=== PATIENT | male | born 1930 | race Caucasian/White ===

== ENCOUNTER → 2016-10-30 | Outpatient (CLI) | payer OTHER ==
[2016-10-30 16:26] LABS: BASOPHILS # (AUTO) 0.05 10*3/UL; HEMATOCRIT 41.3 % (42.0-52.0); HEMOGLOBIN 13.8 g/dL (14.0-18.0); IMM GRAN % (AUTO) 0.2 % (0-5); IMM GRAN# (AUTO) 0.01 10*3/UL; LYMPHOCYTES # (AUTO) 1.55 10*3/uL; LYMPHOCYTES % (AUTO) 31.3 % (10-50); MEAN CORPUSCULAR HEMOGLOBIN 30.1 PG (27-31); MEAN CORPUSCULAR HGB CONC 33.4 g/dL (33-37); MEAN PLATELET VOLUME 9.2 FL (7.4-12.2); MONOCYTES # (AUTO) 0.53 10*3/UL (0.3-0.8); MONOCYTES % (AUTO) 10.7 % (5-15); NEUTROPHILS # (AUTO) 2.66 10*3/UL; NEUTROPHILS % (AUTO) 53.8 % (50-80); RED BLOOD COUNT 4.59 10^6/uL (4.70-6.10); WHITE BLOOD COUNT 4.95 10^3/uL (4.8-10.8)
[2016-10-30 16:32] LABS: PLATELET MORPHOLOGY COMMENT NORMAL MORPHOLOGY (NORM)
[2016-10-30 16:49] LABS: BILIRUBIN,TOTAL 0.5 mg/dL (0.3-1.2); BUN/CREATININE RATIO 16.25 (6-20); CALCIUM 9.1 mg/dL (8.7-10.7); CREATININE 0.8 mg/dL (0.70-1.50); POTASSIUM 4.4 meq/L (3.8-5.2); TOTAL PROTEIN 6.3 g/dL (6.1-8.0)
[2016-10-30 16:51] LABS: BILIRUBIN,URINE NEGATIVE (NEG); CLARITY,URINE CLEAR (CLEAR); GLUCOSE, URINE (UA) NEGATIVE (NEG); LEUKOCYTE ESTERASE ,URINE NEGATIVE (NEG); NITRATE,URINE NEGATIVE (NEG); OCCULT BLOOD,URINE NEGATIVE (NEG); PROTEIN,URINE 30 mg/dl (NEG); URINE SAMPLE TYPE CLEAN CATCH URINE; UROBILINOGEN,URINE 0.2 mg/dL (0.2)
== END ==
LOC: MOB LAB 15:22
DX: E55.9 Vitamin D deficiency, unspecified (principal); G47.30 Sleep apnea, unspecified; E78.5 Hyperlipidemia, unspecified; K51.90 Ulcerative colitis, unspecified, without complications; R97.20 Elevated prostate specific antigen [PSA]; Z12.5 Encounter for screening for malignant neoplasm of prostate
CPT/HCPCS: 36415; 80053; 81001; 82306; 84443; 85025; G0103

== ENCOUNTER 2016-11-18 02:35 | Inpatient (IN) | payer OTHER ==
[2016-11-18] MEDS ORDERED: Sodium Chloride 0.9% 1,000 ML PRIMARY IV ONE (02:52)
[2016-11-18] MEDS ORDERED: NORMAL SALINE 10 ML SYRINGE FLUSH IVP PRN ×2 (02:52→06:25)
[2016-11-18] MEDS ORDERED: LORazepam 2 MG/1 ML VIAL IVP ONE (02:55)
--- NOTE | 2016-11-18 02:57 | EKG ---
[address] [address] Measurements Intervals [place] Rate: 82 P: 71 NM: 175 QRS: -28 QRSD: 90 T: -37 QT: 397 QTc: 436 Interpretive Statements SINUS RHYTHM WITH OCCASIONAL VENTRICULAR PREMATURE COMPLEXES BORDERLINE LEFT AXIS DEVIATION [QRS AXIS < -20] NONSPECIFIC ST & T-WAVE ABNORMALITY No previous ECG available for comparison Electronically Signed On 11-18-16 12:34:07 MDT by Melvin Bowen [email or web address]
[2016-11-18 03:20] LABS: VENOUS PCO2 38.6 mmHg (45-55); VENOUS PH 7.34 (7.32-7.42)
[2016-11-18 03:31] LABS: BASOPHILS # (AUTO) 0.04 10*3/UL; BASOPHILS % (AUTO) 0.8 % (0-1); EOSINOPHILS # (AUTO) 0.24 10*3/UL; EOSINOPHILS % (AUTO) 4.5 % (0-8); HEMATOCRIT 40.6 % (42.0-52.0); HEMOGLOBIN 13.7 g/dL (14.0-18.0); LYMPHOCYTES # (AUTO) 1.99 10*3/uL; MEAN CORPUSCULAR HEMOGLOBIN 30.6 PG (27-31); MEAN CORPUSCULAR HGB CONC 33.7 g/dL (33-37); MEAN CORPUSCULAR VOLUME 90.6 FL (80-90); MEAN PLATELET VOLUME 9.4 FL (7.4-12.2); MONOCYTES # (AUTO) 0.51 10*3/UL (0.3-0.8); MONOCYTES % (AUTO) 9.6 % (5-15); NEUTROPHILS # (AUTO) 2.53 10*3/UL; NEUTROPHILS % (AUTO) 47.6 % (50-80); PLATELET MORPHOLOGY COMMENT NORMAL MORPHOLOGY (NORM); RBC MORPHOLOGY COMMENT NORMAL MORPHOLOGY (NORM); RED BLOOD COUNT 4.48 10^6/uL (4.70-6.10); WBC MORPHOLOGY COMMENT NORMAL MORPHOLOGY (NORM)
[2016-11-18 03:32] LABS: AMMONIA < 9 UMOL/L (9.0-33.0); BLOOD UREA NITROGEN 15 mg/dL (7-22); BUN/CREATININE RATIO 16.66 (6-20); CALCIUM 8.5 mg/dL (8.7-10.7); MAGNESIUM 1.9 mg/dL (1.6-2.4); SERUM ALBUMIN 3.8 g/dL (3.5-4.8)
--- NOTE | 2016-11-18 03:34 | DI ---
HISTORY: Hypoxia. COMPARISON: None available. TECHNIQUE: Single portable view of the chest. FINDINGS: No lobar infiltrate, large pleural effusion or pneumothorax. Moderate enlargement of the cardiac silhouette. No acute osseous abnormality. Chronic, full thickness rotator cuff tears. Decr eased osseous mineralization, evaluation of the spine limited. Suggested hiatal hernia. IMPRESSION: 1. No lobar consolidation or large effusion. 2. Moderate cardiomegaly.
[2016-11-18 03:35] LABS: C-REACTIVE PROTEIN < 0.5 mg/dL (0.0-0.9); SALICYLATE < 1.0 mg/dl (0-20)
--- NOTE | 2016-11-18 03:59 | DI ---
HISTORY: Confusion. COMPARISON: None available. TECHNIQUE: Non-contrast CT brain. Overall image quality is satisfactory, noting limitation of the p erioral soft tissues secondary to dental hardware. FINDINGS: EXTRACRANIAL SOFT TISSUES- No significant soft tissue injury identified. BONE - Calvarium: No depressed skull fracture. Temporal mastoids: No mastoid effusion. No discrete mastoid fracture noted. Included paranasal sinuses: Well aerated, noting maxillary sinus mucosal thickening. Orbits: No acute abnormality. CSF SPACES - Ventricles: Prominent. Subarachnoid spaces: Prominent. BRAIN - Periventricular and subcortical variable white matter changes. No acute intracranial bleed, large vessel territory infarct or midline shift. Atherosclerotic vascular calcifications in the distal internal carotid and cerebral arteries. IMPRESSION: 1. No acute intracranial hemorrhage or midline shift. 2. Variable white matter changes which are age indeterminate, likely on the basis of chronic small ve ssel ischemic change.
--- NOTE | 2016-11-18 04:49 | PDOC ---
General Adult HPI - General Chief Complaint: Neurological Complaints Stated Complaint: MENTAL STATUS CHANGE Date Seen by Provider: 11/18/16 Time Seen by Provider: 02:35 Source: POSITIVE: Patient, Spouse, EMS Exam Limitations: POSITIVE: Clinical condition Nurse's Notes Reviewed & Considered: Yes EMS Report Reviewed & Considered: Verbal - History of Present Illness Initial Comment: The patient is an 86-year-old male who is brought to the emergency department by ambulance with altered mental status. His reports that he seemed to be doing fine earlier today and they had actually traveled to [place] to watch a rodeo. They had gone to sleep at approximately 11 PM. She woke up at approximately 2 AM and noticed that he seemed to be breathing differently. She tried to wake him up and he was unresponsive. She subsequently called 911. When EMS first arrived the patient was unresponsive. His oxygen saturations were low in the 80s. His blood sugar was normal at 122 and his 12-lead EKG did not show any acute changes. An IV was established and in route the patient seemed to be doing better. He was moving all extremities and would follow commands however his speech was still somewhat difficult to understand. EMS did report that he was incontinent of urine at his home. He does not have any known history of seizures or stroke. His reports that he has primary sclerosing cholangitis for which he has been under treatment with the GI doctors in [place] for some time and has been stable. He was recently started on medication for his blood pressure and underwent a stress test the food demonstrator last week in [place]. They were told that the stress test was normal for the most part and he was supposed to follow up with Dr. calderon at the cardiology clinic later this week here and [place]. He did recently get started on a blood pressure medicine about a week ago. In addition his reports that he does have a history of sleep apnea. He normally wears oxygen at night at 2 L. His reports however that he does occasionally "forget to breathe" when he is sleeping. She states that he tried a CPAP machine previously and was unable to tolerate it. He is otherwise generally fairly healthy and active. Have you received a tetanus shot in the past 10 years?: Unknown - Patient Home Medications Home Medications: Home Medications Azathioprine 1.5 tab PO QD #45 tab 01/17/11 Omeprazole 20 mg ORAL QD capsule 01/17/11 Sulfasalazine 2 - 4 tab PO QD #120 01/17/11 Ursodiol 1 - 3 cap PO QD #90 01/17/11 Folic Acid 1 mg ORAL QD tab 10/15/12 Saw [place] Xtr/Zinc Picolin [Saw [place] Capsule] 1 each PO DAILY 10/15/12 Cholecalciferol (Vitamin D3) [Vitamin D3] 1 cap PO QD #30 cap 11/09/15 Vitamin E Mixed [Vitamin E] 1 cap PO QD #30 cap 11/09/15 - Patient Allergies Allergies/Adverse Reactions: Allergies Allergy/AdvReac Type Severity Reaction Status Date / Time No Known Allergies Allergy Verified 11/18/16 03:03 Past Medical History - heen HEENT History: Denies History Cardiovascular History: Hyperlipidemia Respiratory History: Sleep Apnea Gastrointestinal History: GERD Genitourinary History: Denies History Endocrine History: Denies History Musculoskeletal History: Other (please comment) Additional Musculoskeletal History: RECENT CARPAL TUNNEL Neurological History: Denies History Blood Disorders: Denies History Psychiatric History: Denies History History of Sexually Transmitted Diseases: No Male Reproductive History: Denies History Cancer History: Denies History In Past Year Been Physically Harmed or Verbally Threatened: No History of MDRO: No History of Other Communicable Diseases: No Tobacco Use: Former Smoker Alcohol Use: None Substance Use Type: None Previous Surgical History: Yes Type / Date of Surgery: CARPAL TUNNEL (SATURDAY), APPY, LAP IRON Significant Family History: No pertinent family hx Past Medical History Reviewed: Reviewed - No Changes ROS - Limitations ROS Limitations: Clinical Condition, Other (please comment) (On arrival the patient was awake however he was confused and somewhat agitated) Constitution: DENIES: Chills, Fever Cardiovascular: DENIES: Chest Pain Respiratory: REPORTS: Other (He was breathing fast initially on seen however this seems to have settled down by the time he arrived here). DENIES: Cough Non Productive, Cough Productive Neurological: REPORTS: Other (He does have a tremor) Gastrointestinal: DENIES: Abdominal Pain, Nausea, Vomitting, Diarrhea Musculoskeletal: REPORTS: Other (He denies any pain and has not had any swelling ) Genitourinary: REPORTS: Denies Symptoms Eyes: REPORTS: Denies Symptoms ENT: REPORTS: Denies Symptoms Skin: DENIES: Rash General Adult Exam - General Appearance General Appearance: POSITIVE: Other (On arrival the patient is awake and he does follow commands however he does appear confused and somewhat agitated, he thought that Pres. Boo was in office) - HEENT HEENT: POSITIVE: Head Inspection Nml, Eyes Inspection Nml, Ears Inspection Nml, Nose Inspection Nml, Pharynx Inspect. Nml, PERRL, EOMI - Neck Neck: POSITIVE: Normal Inspection. NEGATIVE: Lymphadenopathy - Respiratory Respiratory: POSITIVE: No Respiratory Distress, Breath Sounds Normal - Cardiovascular Cardiovascular: POSITIVE: Regular Rate & Rhythm, No Murmur Peripheral Pulses: Dorsalis-pedis (R): 2+, Dorsalis-pedis (L): 2+ - Abdomen Abdomen: Soft: (All Quadrants), Denies Tenderness: (All Quadrants), No Distention: (All Quadrants) - Skin Skin: POSITIVE: Normal Color, No Rash - Extremities Extremity: Normal ROM: (All Extremities), Normal Inspection: (All Extremities) - Neurological / Psychological Neurological: POSITIVE: transmitter tester Normal As Tested, Motor Normal, Sensation Normal, Other (No focal motor deficits) General Adult Progress - Results Reviewed by me Xrays/CTs/US Reviewed by me: Yes Discussed with Radiologist: Yes Radiology Findings: Chest x-ray shows borderline cardiomegaly with no acute infiltrate or effusion per radiologist. CT scan of his head reveals no acute intracranial findings per radiologist. Lab Results Reviewed: Yes Lab Results:: Laboratory Results 11/18/16 11/18/16 Range/Units 02:52 03:17 WBC 5.31 (4.8-10.8) 10^3/uL RBC 4.48 L (4.70-6.10) 10^6/uL Hgb 13.7 L (14.0-18.0) g/dL Hct 40.6 L (42.0-52.0) % MCV 90.6 H (80-90) FL MCH 30.6 (27-31) PG MCHC 33.7 (33-37) g/dL RDW Std Deviation 47.0 (39-50) fL RDW Coeff of Niurka 14.4 (11.5-14.5) % Plt Count 276 (140-350) 10*3/uL MPV 9.4 (7.4-12.2) FL Immature Gran % (Auto) 0 (0-5) % Neut % (Auto) 47.6 L (50-80) % Lymph % (Auto) 37.5 (10-50) % [place] % (Auto) 9.6 (5-15) % Eos % (Auto) 4.5 (0-8) % Baso % (Auto) 0.8 (0-1) % Immature Gran # (Auto) 0 10*3/UL Neut # (Auto) 2.53 10*3/UL Lymph # (Auto) 1.99 10*3/uL [place] # (Auto) 0.51 (0.3-0.8) 10*3/UL Eos # (Auto) 0.24 10*3/UL Baso # (Auto) 0.04 10*3/UL WBC Morphology Comment Normal morphology (NORM) Plt Morphology Comment Normal morphology (NORM) RBC Morph Comment Normal morphology (NORM) VBG pH 7.34 (7.32-7.42) VBG pCO2 38.6 L (45-55) mmHg VBG HCO3 20.8 L (22-26) mmol/L VBG Base Excess -5 L (-2-2) MMOL/L Sodium 132 L (135-145) meq/L Potassium 3.9 (3.8-5.2) meq/L Chloride 98 (98-112) meq/L Carbon Dioxide 23 (23-33) meq/L Anion Gap 11 (5-20) BUN 15 (7-22) mg/dL Creatinine 0.9 (0.70-1.50) mg/dL Estimated GFR Internet Sales Manager BUN/Creatinine Ratio 16.66 (6-20) Glucose 99 (78-110) mg/dL Calculated Osmolality 274.0 (267-292) mOsm/kg Lactic Acid 5.0 H (0.70-2.10) MMOL/L Calcium 8.5 L (8.7-10.7) mg/dL Magnesium 1.9 (1.6-2.4) mg/dL Total Bilirubin 0.5 (0.3-1.2) mg/dL AST 28 (21-57) IU/L ALT 19 L (21-72) IU/L Alkaline Phosphatase 50 (38-126) IU/L Ammonia < 9 L (9.0-33.0) UMOL/L Total Creatine Kinase 256 H (55-170) IU/L Troponin I < 0.012 (< 0.040) ng/mL C-Reactive Protein < 0.5 (0.0-0.9) mg/dL Total Protein 6.1 (6.1-8.0) g/dL Albumin 3.8 (3.5-4.8) g/dL Globulin 2.3 L (2.50-4.10) g/dL Albumin/Globulin Ratio 1.60 (1.3-2.0) mg/g TSH 4.22 H (0.2700-4.2000) uIU/mL Free T4 Pending Salicylates < 1.0 (0-20) mg/dl Acetaminophen < 10.0 (0-30) ug/mL Serum Alcohol < 10 (0-10) mg/dL EKG Interpreted/Reviewed By Me:: Yes EKG Interpretation:: POSITIVE: Normal Sinus Rhythm, Normal Rate, Normal Intervals, Normal [place], Normal QRS, Normal ST/T - Patient's Progress MDM / ED Course: On arrival the patient was somewhat confused and agitated however did not appear to have any focal neurologic deficits. This confusion and agitation gradually resolved over approximately 30-60 minutes. At that time the patient was answering questions appropriately and joking, he was able to get up and walk to the bathroom on his own. His workup here is essentially unremarkable, his EKG shows normal sinus rhythm with no acute changes, his blood work reveals a slightly elevated lactate as well as a mildly elevated CPK however everything else is fairly unremarkable. He has a mildly low hemoglobin and mildly low sodium which is not new. At this point it is unclear exactly what the etiology of this episode this evening was. It is possible this could be some form of TIA or some type of hypoxic event related to sleep apnea. Decision was made to admit the patient for further monitoring and evaluation. After [facility] has agreed to admit the patient. These findings and recommendations were discussed with the patient and family and they're in agreement with this plan. - Consult Counseled: POSITIVE: Patient, Family, RE: Lab Results, RE: Radiology Results, RE : DX, RE: Need for F/U Patient Care Time - Estimated PCT Patient Care Time (In Minutes): 40 Vital Signs - Recent Vital Signs Vital Signs: Vital Signs (Last 8 hours) Temp Pulse Resp BP Pulse Ox 11/18/16 02:36 96.6 F L 85 22 145/72 100 - VS Reviewed Vital Signs Reviewed: Yes Discharge Clinical Impression: Altered mental status, Hypoxia Discharge Disposition: Admit to Observation Condition: Fair
[2016-11-18 04:51] LABS: COLOR,URINE YELLOW; URINE SAMPLE TYPE CLEAN CATCH URINE
[2016-11-18 04:52] LABS: AMPHETAMINE SCREEN NEGATIVE (NEG); BILIRUBIN,URINE NEGATIVE (NEG); CANNABINOID SCREEN,URINE NEGATIVE (NEG); CLARITY,URINE CLEAR (CLEAR); COCAINE SCREEN NEGATIVE (NEG); GLUCOSE, URINE (UA) NEGATIVE (NEG); METHADONE URINE SCREEN NEGATIVE (NEG); METHAMPHETAMINES SCREEN,URINE NEGATIVE (NEG); NITRATE,URINE NEGATIVE (NEG); OCCULT BLOOD,URINE Trace-lysed (NEG); OPIATE SCREEN,URINE NEGATIVE (NEG); PROTEIN,URINE 30 mg/dl (NEG); URINE SPECIFIC GRAVITY - MAN 1.015; UROBILINOGEN,URINE 0.2 EU/dL (0.2)
[2016-11-18 04:53] LABS: BACTERIA,URINE RARE; SQUAMOUS EPITHELIAL CELL,UR RARE; WBC,URINE 0-1
[2016-11-18 05:15] LABS: FREE T4 (FREE THYROXINE) 1.04 ng/dL (0.93-1.71)
[2016-11-18] MEDS: Sodium Chloride 0.9% 1,000 ML PRIMARY IV SCH ×2 (06:30→20:29)
[2016-11-18] MEDS ORDERED: OMEPRAZOLE 20 MG CAPSULE PO SCH (07:00)
[2016-11-18] MEDS ORDERED: URSODIOL 300 MG SCH (09:00)
[2016-11-18] MEDS ORDERED: AZATHIOPRINE 50 MG SCH (09:00)
[2016-11-18] MEDS ORDERED: SAW PALMETTO SCH (09:00)
[2016-11-18] MEDS ORDERED: SULFASALAZINE 500 MG SCH (09:00)
[2016-11-18] MEDS: FOLIC ACID 1 MG TABLET PO SCH (09:08)
[2016-11-18] MEDS: Vitamin E Cap 400 IU CAP PO SCH (09:09)
[2016-11-18] MEDS: CHOLECALCIFEROL 1000 IU TABLET PO SCH (09:09)
[2016-11-18] MEDS ORDERED: SAW PALMETTO PO SCH (09:14)
[2016-11-18] MEDS ORDERED: SULFASALAZINE 500 MG PO SCH (09:21)
[2016-11-18] MEDS: AZATHIOPRINE 50 MG PO SCH (09:27)
[2016-11-18] MEDS: URSODIOL 300 MG PO SCH ×4 (09:33→20:29)
[2016-11-18] MEDS: AmLODIPine Tab 2.5 MG TABLET PO SCH (10:15)
--- NOTE | 2016-11-18 15:10 | PDOC ---
History and Physical - History of Present Illness Date and Time of Service: 11/18/2016, 1507 Chief Complaint: Altered mental status History of Present Illness: This very pleasant 86-year-old male who generally finds himself in the care of Dr. Catherine amongst other specialists who presented to the hospital early this morning to the emergency room by ambulance and his history is obtained from his and is daughter present at bedside. 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 They got back fairly late, and the patient apparently has sleep apnea which is worse when he lays on his side in terms of symptoms. Patient's states that the patient seemed to have significant snoring problems and seemed to stop breathing with an apical episode, and then he apparently clenched up and tightened up and his muscles were quite tight in his legs. His toes cold back towards his head. He lost his urine and he bit his tongue although that was not known until I examine the patient and found fairly large right-sided injury on the tongue. The patient's actually thought the patient lost the pulse, and called 911. The aircraft magneto mechanic did not find the patient without a pulse. He was brought in for evaluation and found to be hypoxic with oxygen saturations in the 80% range. Today, the patient has absolutely no recall of this event. He's never had anything like this happen before. No recent falls or traumas described. Never had a seizure before. No fevers or chills. Patient's also felt the patient was dehydrated. No interventions outside of calling the emergency room were attempted prior to hospitalization. There were no exacerbating factors otherwise. The patient did not have any slurred speech or muscle weakness on one side or the other upon presentation. He denies chest pain. He did recently get started on some blood pressure medications with his iron cutter. That was Norvasc. Past Medical History Medical History: 1. Primary sclerosing cholangitis, managed by medications. 2. Ulcerative colitis. 3. GERD. 4. Hyperlipidemia. 5. Obstructive sleep apnea with intolerance of mask with CPAP therapy. 6. Tremor Surgical History: 1. Cholecystectomy. 2. Appendectomy many years ago. 3. Tonsillectomy in childhood. 4. Right total hip arthroplasty and pelvic fracture. 5. Right cataract extraction in 2012. 6. Macular "pucker". 7. Right arm fracture s/p ORIF in adolescence Pertinent Family History: Significant for TIAs and mother Past Social History: Does not currently smoke or drink. . Has children that are described as healthy. 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 Tobacco Use: Former Smoker Substance Use Type: None Alcohol Use: Rarely Medication / Allergies Home Medications: Home Medications Medication Instructions Recorded Confirmed Type Azathioprine 1.5 tab PO QD #45 tab 01/17/11 11/18/16 History Omeprazole 20 mg ORAL QD capsule 01/17/11 11/18/16 History Sulfasalazine 2 - 4 tab PO QD #120 01/17/11 11/18/16 History Ursodiol 1 - 3 cap PO QD #90 01/17/11 11/18/16 History Folic Acid 1 mg ORAL QD tab 10/15/12 11/18/16 History Saw [place] Xtr/Zinc Picolin [Saw 1 each PO DAILY 10/15/12 11/18/16 History [place]ion Capsule] Cholecalciferol (Vitamin D3) 1 cap PO QD #30 cap 11/09/15 11/18/16 Clinic [Vitamin D3] Vitamin E Mixed [Vitamin E] 1 cap PO QD #30 cap 11/09/15 11/18/16 Clinic Allergies/Adverse Reactions: Allergies Allergy/AdvReac Type Severity Reaction Status Date / Time No Known Allergies Allergy Verified 11/18/16 03:03 Review of Systems - Review of Systems All Systems: Reviewed & No Additional Complaints Except as Stated (I did a 12 point review of systems and it was negative other than that discussed in history present illness and that discussed below.) - Constitutional Constitutional: REPORTS: Negative System Review - Respiratory Respiratory: REPORTS: Negative System Review - Cardiovascular Cardiovascular: REPORTS: Negative System Review - Gastrointestinal Gastrointestinal / Abdominal: REPORTS: Negative System Review - Genitourinary Genitourinary: REPORTS: Nocutria, Other (Has an elevated PSA, but no plans for prostate biopsy.) - Musculoskeletal Musculoskeletal: REPORTS: Negative System Review - Neurological Neurologic: REPORTS: Negative System Review - Additonal Details Additional ROS Details: Apparently doesn't drink a lot of fluids during the day other than coffee. Does have nocturia Exam - Vitals Vital Signs: Vital Signs Temperature 98 F Temperature Source Temporal Artery Scan Pulse Rate [Pulse Oximeter] 65 Pulse Rate 61 Respiratory Rate 18 Blood Pressure [Right Arm] 117/53 Pulse Ox 93 Oxygen Flow Rate 1.5 Oxygen Delivery Method Nasal Cannula Height 5 ft 6 in Weight 161 lb - General General Appearance: POSITIVE: No Acute Distress, Cooperative - Head Head Exam: POSITIVE: Normal Inspection, Normocephalic, Atraumatic - Eye Eye Exam: POSITIVE: No Scleral Icterus - ENT ENT Exam: POSITIVE: Mucous Membranes Moist - Neck Neck Exam: POSITIVE: Normal Inspection, No Tenderness, No Thyromegaly - Respiratory Respiratory Exam: POSITIVE: Clear to Auscultation - Bilaterally, Breathing Non Labored, Normal to Percussion and Palpation - Cardiovascular Cardiovascular Exam: POSITIVE: RRR, No Murmur, No Clicks, No Gallops, No Rubs, No JVD - GI/Abdominal GI/Abdominal Exam: POSITIVE: Normal Bowel Sounds, Non Tender, Non Distended, Soft - Rectal Rectal Exam: POSITIVE: Deferred - External Exam: POSITIVE: Deferred Exam: POSITIVE: Deferred - Extremities Extremities Exam: POSITIVE: No Clubbing Present, No Edema Present, No Cyanosis Present - Back Back Exam: POSITIVE: No CVA Tenderness - Neurological Neurological Exam: POSITIVE: Alert, Oriented x 3, No Facial Droop, Speech Intact / Clear, Moves All Extremities Equally - Psychiatric Psychiatric Exam: POSITIVE: Normal Affect, Normal Mood - Integumentary Integumentary Exam: POSITIVE: Normal Color, Warm, Dry, Intact Results - Labs CBC and BMP: 11/18/16 03:17 11/18/16 03:17 Labs - Last 24 Hours: Laboratory Results 11/18/16 11/18/16 Range/Units 02:52 03:17 WBC 5.31 (4.8-10.8) 10^3/uL RBC 4.48 L (4.70-6.10) 10^6/uL Hgb 13.7 L (14.0-18.0) g/dL Hct 40.6 L (42.0-52.0) % MCV 90.6 H (80-90) FL MCH 30.6 (27-31) PG MCHC 33.7 (33-37) g/dL RDW Std Deviation 47.0 (39-50) fL RDW Coeff of [place]ur[place] 14.4 (11.5-14.5) % Plt Count 276 (140-350) 10*3/uL MPV 9.4 (7.4-12.2) FL Immature Gran % (Auto) 0 (0-5) % Neut % (Auto) 47.6 L (50-80) % Lymph % (Auto) 37.5 (10-50) % [place] % (Auto) 9.6 (5-15) % Eos % (Auto) 4.5 (0-8) % Baso % (Auto) 0.8 (0-1) % Immature Gran # (Auto) 0 10*3/UL Neut # (Auto) 2.53 10*3/UL Lymph # (Auto) 1.99 10*3/uL [place] # (Auto) 0.51 (0.3-0.8) 10*3/UL Eos # (Auto) 0.24 10*3/UL Baso # (Auto) 0.04 10*3/UL WBC Morphology Comment Normal morphology (NORM) Plt Morphology Comment Normal morphology (NORM) RBC Morph Comment Normal morphology (NORM) VBG pH 7.34 (7.32-7.42) VBG pCO2 38.6 L (45-55) mmHg VBG HCO3 20.8 L (22-26) mmol/L VBG Base Excess -5 L (-2-2) MMOL/L Sodium 132 L (135-145) meq/L Potassium 3.9 (3.8-5.2) meq/L Chloride 98 (98-112) meq/L Carbon Dioxide 23 (23-33) meq/L Anion Gap 11 (5-20) BUN 15 (7-22) mg/dL Creatinine 0.9 (0.70-1.50) mg/dL Estimated GFR Special Educator BUN/Creatinine Ratio 16.66 (6-20) Glucose 99 (78-110) mg/dL Calculated Osmolality 274.0 (267-292) mOsm/kg Lactic Acid 5.0 H (0.70-2.10) MMOL/L Calcium 8.5 L (8.7-10.7) mg/dL Magnesium 1.9 (1.6-2.4) mg/dL Total Bilirubin 0.5 (0.3-1.2) mg/dL AST 28 (21-57) IU/L ALT 19 L (21-72) IU/L Alkaline Phosphatase 50 (38-126) IU/L Ammonia < 9 L (9.0-33.0) UMOL/L Total Creatine Kinase 256 H (55-170) IU/L Troponin I < 0.012 (< 0.040) ng/mL C-Reactive Protein < 0.5 (0.0-0.9) mg/dL Total Protein 6.1 (6.1-8.0) g/dL Albumin 3.8 (3.5-4.8) g/dL Globulin 2.3 L (2.50-4.10) g/dL Albumin/Globulin Ratio 1.60 (1.3-2.0) mg/g TSH 4.22 H (0.2700-4.2000) uIU/mL Free T4 1.04 (0.93-1.71) ng/dL Ur Collection Type Clean catch urine Urine Color Yellow Urine Clarity Clear (CLEAR) Urine pH 5.0 (5.0-8.5) Ur Specific [place] 1.015 (1.005-1.030) U Specif Grav (Refrac) 1.015 Urine Protein 30 (NEG) mg/dl Urine Glucose (UA) Negative (NEG) mg/dL Urine Ketones Negative (NEG) Urine Occult Blood Trace-lysed H (NEG) Urine Nitrate Negative (NEG) Urine Bilirubin Negative (NEG) Urine Urobilinogen 0.2 (0.2) EU/dL Ur Leukocyte Esterase Negative (NEG) Urine RBC 1-3 (NONE) /hpf Urine WBC 0-1 (NONE) Ur Squamous Epith Cells Rare (NONE) Ur Renal Epithelial Cell None (NONE) Urine Crystals None Urine Bacteria Rare (NONE) Urine Casts None (NONE) Urine Mucus None (NONE) Urine Trichomonas None (NONE) Urine Yeast None (NONE) Ur Culture Indicated? Culture not set Salicylates < 1.0 (0-20) mg/dl Urine Opiates Screen Negative (NEG) Ur Buprenorphine Negative (NEG) Ur Oxycodone Screen Negative (NEG) Urine Methadone Screen Negative (NEG) Ur Propoxyphene Screen Negative (NEG) Acetaminophen < 10.0 (0-30) ug/mL Barbiturate Screen Negative (NEG) U Tricyclic Antidepress Negative (NEG) Phencyclidine Screen Negative (NEG) Amphetamines Screen Negative (NEG) U Methamphetamines Scrn Negative (NEG) Benzodiazepines Screen Negative (NEG) Cocaine Screen Negative (NEG) U Marijuana (THC) Screen Negative (NEG) Serum Alcohol < 10 (0-10) mg/dL - EKG Data -: EKG Interpreted by Me Rate: Normal EKG Shows Normal: Sinus Rhythm - Imaging Status: Image Reviewed by Me (Chest x-ray, appears negative for pneumonia. Head CT scan appeared negative for a bleed.) Assessment and Plan - Patient Problems (1) Altered mental status Current Visit: Yes Status: Acute Qualifiers: Altered mental status type: disorientation Qualified Description: Disorientation Qualifier Code(s): (R41.0) Disorientation, unspecified (2) Hypertension Current Visit: Yes Status: Acute Qualifiers: Hypertension type: essential hypertension Qualified Description: Essential hypertension Qualifier Code(s): (I10) Essential (primary) hypertension (3) Primary sclerosing cholangitis Current Visit: Yes Status: Acute (4) GERD (gastroesophageal reflux disease) Current Visit: Yes Status: Acute - Assessment / Plan Additional Assessment/Plan Details: Overall, I think this presentation is most likely consistent with a seizure. He had tongue biting, loss of bladder, clenching of his lower extremities with toes going towards the head which sounds like a generalized tonic-clonic seizure. The stimulus could've been sleep deprivation as described by the patient's along with hypoxia with known sleep apnea and intolerance to mask. Either way, I did recommend no driving for at least 3 months and in evaluation by neurologist. The patient has had metal in his body from fracture repair from his hip and so forth, so I don't think that an MRI scan of the something that we should do here. I like to watch him at least over midnight make sure no further events happened, watch for fever or chills, and if those are all okay over the next midnight, then hopefully tomorrow we can schedule a neurology appointment for further evaluation for seizures. Given the patient's young age of 86, I would like to hold off on antiepileptic drugs until we have a definitive diagnosis. Continue cardiac monitoring into tomorrow. Thus far no arrhythmias noted. The story is not consistent with stroke and the patient has no focal or lateralizing findings on today's exam either. I discussed above plan with the patient and his and daughter and they agreed.
[2016-11-18] MEDS ORDERED: FOLIC ACID 1 MG ORAL SCH (15:30)
[2016-11-18] MEDS ORDERED: AZATHIOPRINE PO SCH (15:30)
[2016-11-18] MEDS ORDERED: URSODIOL PO SCH (15:30)
[2016-11-18] MEDS ORDERED: CHOLECALCIFEROL PO SCH (15:30)
[2016-11-18] MEDS ORDERED: SULFASALAZINE PO SCH (15:30)
--- NOTE | 2016-11-18 15:55 | EKG ---
[address] [place] [address] Measurements Intervals [place] Rate: 78 P: 67 ME: 183 QRS: -33 QRSD: 83 T: -29 QT: 390 QTc: 423 Interpretive Statements SINUS RHYTHM MARKED LEFT AXIS DEVIATION [QRS AXIS < -30] NONSPECIFIC ST & T-WAVE ABNORMALITY Compared to ECG 11/18/2016 02:52:26 Ventricular premature complex(es) no longer present T-wave abnormality still present Electronically Signed On 11-19-16 08:08:10 MDT by Rasheed Lambert MD [id number]
[2016-11-18] MEDS: SULFASALAZINE 500 MG PO SCH ×4 (16:06→23:45)
[2016-11-18] MEDS: OMEPRAZOLE 20 MG CAPSULE PO SCH (16:19)
[2016-11-19 04:54] VITALS: RESP 18
[2016-11-19 06:24] LABS: BUN/CREATININE RATIO 13.75 (6-20); CALCIUM 8.1 mg/dL (8.7-10.7)
[2016-11-19] MEDS: OMEPRAZOLE 20 MG CAPSULE PO SCH (07:23)
[2016-11-19 07:29] VITALS: TEMP 97.2
[2016-11-19] MEDS: FOLIC ACID 1 MG TABLET PO SCH (08:55)
[2016-11-19] MEDS: Vitamin E Cap 400 IU CAP PO SCH (08:55)
[2016-11-19] MEDS: AmLODIPine Tab 2.5 MG TABLET PO SCH (08:56)
[2016-11-19] MEDS: SULFASALAZINE 500 MG PO SCH (08:56)
[2016-11-19] MEDS: URSODIOL 300 MG PO SCH (08:56)
[2016-11-19] MEDS: CHOLECALCIFEROL 1000 IU TABLET PO SCH (08:56)
[2016-11-19] MEDS: AZATHIOPRINE 50 MG PO SCH (08:57)
[2016-11-19] MEDS ORDERED: AmLODIPine Tab 2.5 MG TABLET PO SCH (09:00)
[2016-11-19] MEDS: Sodium Chloride 0.9% 1,000 ML PRIMARY IV SCH (10:36)
--- NOTE | 2016-11-19 11:15 | DCSUMMARY ---
Hospitalization Summary Admit Date: 11/18/16 Discharge Date: 11/19/16 Primary Diagnosis:: altered mental status, resolved, possible seizure Hospital Course: This very pleasant 86-year-old male who came in with an altered mental status. Reportedly, the patient had a gaping open mouth, flexed legs with toes curling towards his head, he bit his tongue and had urinary incontinence. The episode lasted for a while. The patient came in very confused and disoriented and in the morning it was resolved. His head CT scan was negative for stroke. I did not get an MRI scan as he has metal from prior hip fracture surgery as well as other metals from other bone surgeries in the past. The history sounded strongly suspicious of a stroke possibly with sleep deprivation and hypoxemia as stimuli. I don't know for sure however, and have suggested that the patient not drive for the next 90 days due to this event. We would like to get an opinion with the neurologist and an EEG done and I called the office. They would call the patient and send their opinion back to myself and Dr. Catherine. We greatly appreciate the assistance of Dr. Cronin, Dr. Garcia, Dr. Moon in this issue. No medication changes were made. We also did notice bradycardia but it was asymptomatic in the hospital. Due to seeing bradycardia with telemetry monitoring, I feel it may be best to go ahead and use a Holter monitor to see if her missing any significant arrhythmias. I' ve given the patient a copy of that prescription. He might set that up with [facility] or he might do it here in the hospital. Today, no completes of chest pain, shortness breath, nausea or vomiting, and the patient is completely oriented. Assessment and Plan: 1. As per discharge assessments noted 2. Disposition: Patient is discharged home. 3. Condition on discharge, stable and improved. 4. Diet: regular diet 5. Activities: resume normal activities, but no driving 90 days 6. Follow-Up: 1. Primary care provider in one to 2 weeks 2. Neurology when appointment can be arranged, we have pushed films to Denis, and would love the opinion to go back to Dr. Catherine. 7. Medications at the Time of Discharge: Home Medications Medication Instructions Recorded Confirmed Type Azathioprine 1.5 tab PO QD #45 tab 01/17/11 11/18/16 History Omeprazole 20 mg ORAL QD capsule 01/17/11 11/18/16 History Sulfasalazine 2 - 4 tab PO QD #120 01/17/11 11/18/16 History Ursodiol 1 - 3 cap PO QD #90 01/17/11 11/18/16 History Folic Acid 1 mg ORAL QD tab 10/15/12 11/18/16 History Saw [facility] Xtr/Zinc Picolin [Saw 1 each PO DAILY 10/15/12 11/18/16 History [facility] Capsule] Cholecalciferol (Vitamin D3) 1 cap PO QD #30 cap 11/09/15 11/18/16 Clinic [Vitamin D3] Vitamin E Mixed [Vitamin E] 1 cap PO QD #30 cap 11/09/15 11/18/16 Clinic 8. Time, care, counseling and coordination of care for this discharge is greater than 30 minutes. Exam - Vitals Vital Signs: Vital Signs Temperature 97.2 F Temperature Source Temporal Artery Scan Pulse Rate [Apical] 58 Pulse Rate [Pulse Oximeter] 60 Pulse Rate 56 Respiratory Rate 18 Blood Pressure [Right Arm] 122/54 Pulse Ox 90 Oxygen Flow Rate 1.5 Oxygen Delivery Method Room Air Height 5 ft 6 in Weight 160 lb 0.008 oz - General General Appearance: POSITIVE: No Acute Distress, Cooperative - Eye Eye Exam: POSITIVE: No Scleral Icterus - Respiratory Respiratory Exam: POSITIVE: Clear to Auscultation - Bilaterally, Breathing Non Labored - Cardiovascular Cardiovascular Exam: POSITIVE: RRR, No Murmur, No Clicks, No Gallops, No Rubs, No JVD - GI/Abdominal GI/Abdominal Exam: POSITIVE: Normal Bowel Sounds, Non Tender, Non Distended, Soft - Extremities Extremities Exam: POSITIVE: No Clubbing Present, No Edema Present, No Cyanosis Present - Neurological Neurological Exam: POSITIVE: Alert, Oriented x 3, No Facial Droop, Speech Intact / Clear, Moves All Extremities Equally - Psychiatric Psychiatric Exam: POSITIVE: Normal Affect, Normal Mood Data Perinent Studies: Laboratory Results 11/18/16 11/18/16 11/19/16 Range/Units 02:52 03:17 06:08 WBC 5.31 (4.8-10.8) 10^3/uL RBC 4.48 L (4.70-6.10) 10^6/uL Hgb 13.7 L (14.0-18.0) g/dL Hct 40.6 L (42.0-52.0) % MCV 90.6 H (80-90) FL MCH 30.6 (27-31) PG MCHC 33.7 (33-37) g/dL RDW Std Deviation 47.0 (39-50) fL RDW Coeff of Niurka 14.4 (11.5-14.5) % Plt Count 276 (140-350) 10*3/uL MPV 9.4 (7.4-12.2) FL Immature Gran % (Auto) 0 (0-5) % Neut % (Auto) 47.6 L (50-80) % Lymph % (Auto) 37.5 (10-50) % [place] % (Auto) 9.6 (5-15) % Eos % (Auto) 4.5 (0-8) % Baso % (Auto) 0.8 (0-1) % Immature Gran # (Auto) 0 10*3/UL Neut # (Auto) 2.53 10*3/UL Lymph # (Auto) 1.99 10*3/uL [place] # (Auto) 0.51 (0.3-0.8) 10*3/UL Eos # (Auto) 0.24 10*3/UL Baso # (Auto) 0.04 10*3/UL WBC Morphology Comment Normal morphology (NORM) Plt Morphology Comment Normal morphology (NORM) RBC Morph Comment Normal morphology (NORM) VBG pH 7.34 (7.32-7.42) VBG pCO2 38.6 L (45-55) mmHg VBG HCO3 20.8 L (22-26) mmol/L VBG Base Excess -5 L (-2-2) MMOL/L Sodium 132 L 134 L (135-145) meq/L Potassium 3.9 4.4 (3.8-5.2) meq/L Chloride 98 101 (98-112) meq/L Carbon Dioxide 23 26 (23-33) meq/L Anion Gap 11 7 (5-20) BUN 15 11 (7-22) mg/dL Creatinine 0.9 0.8 (0.70-1.50) mg/dL Estimated GFR Grader Marker BUN/Creatinine Ratio 16.66 13.75 (6-20) Glucose 99 86 (78-110) mg/dL Calculated Osmolality 274.0 275.0 (267-292) mOsm/kg Lactic Acid 5.0 H 0.7 (0.70-2.10) MMOL/L Calcium 8.5 L 8.1 L (8.7-10.7) mg/dL Magnesium 1.9 (1.6-2.4) mg/dL Total Bilirubin 0.5 (0.3-1.2) mg/dL AST 28 (21-57) IU/L ALT 19 L (21-72) IU/L Alkaline Phosphatase 50 (38-126) IU/L Ammonia < 9 L (9.0-33.0) UMOL/L Total Creatine Kinase 256 H (55-170) IU/L Troponin I < 0.012 (< 0.040) ng/mL C-Reactive Protein < 0.5 (0.0-0.9) mg/dL Total Protein 6.1 (6.1-8.0) g/dL Albumin 3.8 (3.5-4.8) g/dL Globulin 2.3 L (2.50-4.10) g/dL Albumin/Globulin Ratio 1.60 (1.3-2.0) mg/g TSH 4.22 H (0.2700-4.2000) uIU/mL Free T4 1.04 (0.93-1.71) ng/dL Ur Collection Type Clean catch urine Urine Color Yellow Urine Clarity Clear (CLEAR) Urine pH 5.0 (5.0-8.5) Ur Specific [place] 1.015 (1.005-1.030) U Specif Grav (Refrac) 1.015 Urine Protein 30 (NEG) mg/dl Urine Glucose (UA) Negative (NEG) mg/dL Urine Ketones Negative (NEG) Urine Occult Blood Trace-lysed H (NEG) Urine Nitrate Negative (NEG) Urine Bilirubin Negative (NEG) Urine Urobilinogen 0.2 (0.2) EU/dL Ur Leukocyte Esterase Negative (NEG) Urine RBC 1-3 (NONE) /hpf Urine WBC 0-1 (NONE) Ur Squamous Epith Cells Rare (NONE) Ur Renal Epithelial Cell None (NONE) Urine Crystals None Urine Bacteria Rare (NONE) Urine Casts None (NONE) Urine Mucus None (NONE) Urine Trichomonas None (NONE) Urine Yeast None (NONE) Ur Culture Indicated? Culture not set Salicylates < 1.0 (0-20) mg/dl Urine Opiates Screen Negative (NEG) Ur Buprenorphine Negative (NEG) Ur Oxycodone Screen Negative (NEG) Urine Methadone Screen Negative (NEG) Ur Propoxyphene Screen Negative (NEG) Acetaminophen < 10.0 (0-30) ug/mL Barbiturate Screen Negative (NEG) U Tricyclic Antidepress Negative (NEG) Phencyclidine Screen Negative (NEG) Amphetamines Screen Negative (NEG) U Methamphetamines Scrn Negative (NEG) Benzodiazepines Screen Negative (NEG) Cocaine Screen Negative (NEG) U Marijuana (THC) Screen Negative (NEG) Serum Alcohol < 10 (0-10) mg/dL Patient Problems - Patient Problem List (1) Altered mental status Current Visit: Yes Status: Resolved Qualifiers: Altered mental status type: disorientation Qualified Description: Disorientation Qualifier Code(s): (R41.0) Disorientation, unspecified (2) Hypertension Current Visit: Yes Status: Acute Qualifiers: Hypertension type: essential hypertension Qualified Description: Essential hypertension Qualifier Code(s): (I10) Essential (primary) hypertension (3) Primary sclerosing cholangitis Current Visit: Yes Status: Acute (4) GERD (gastroesophageal reflux disease) Current Visit: Yes Status: Acute
== END 2016-11-19 12:53 | disposition home or self-care (01) | DRG 948 ==
LOC: ER 02:35 → MED/SURG 05:05
PROVIDERS: ADMIT Internal Medicine; ATTEND Internal Medicine
DX: R41.82 Altered mental status, unspecified (principal); R09.02 Hypoxemia; K83.0 Cholangitis; R56.9 Unspecified convulsions; I10 Essential (primary) hypertension; K21.9 Gastro-esophageal reflux disease without esophagitis
CPT/HCPCS: 36415; 70450; 71010; 80048; 80053; 80305; 80320; 80329; 81001; 81003; 82140; 82550; 82803; 83605; 83735; 84439; 84443; 84484; 85025; 86140; 87040; 93005; 93010; 94761; 96374; 99284; J7030

== ENCOUNTER → 2016-12-04 | Outpatient (CLI) | payer OTHER | LOC: MMPC 11:11 | DX: R56.9 Unspecified convulsions (principal); K21.9 Gastro-esophageal reflux disease without esophagitis; K75.9 Inflammatory liver disease, unspecified; G47.30 Sleep apnea, unspecified; K51.90 Ulcerative colitis, unspecified, without complications; R97.20 Elevated prostate specific antigen [PSA]; H91.93 Unspecified hearing loss, bilateral; E78.00 Pure hypercholesterolemia, unspecified | CPT/HCPCS: 99213; G0463 ==

== ENCOUNTER → 2017-01-29 | Outpatient (CLI) | payer OTHER | LOC: MMPC 11:11 | PROVIDERS: ATTEND Physician Assistant | DX: S61.411A Laceration without foreign body of right hand, initial encounter (principal); Z23 Encounter for immunization; W06.XXXA Fall from bed, initial encounter | CPT/HCPCS: 90715; 99212; G0463 ==

== ENCOUNTER → 2017-01-30 | Outpatient (CLI) | payer OTHER | LOC: MMPC 11:11 | DX: G40.909 Epilepsy, unspecified, not intractable, without status epilepticus (principal); K21.9 Gastro-esophageal reflux disease without esophagitis; R09.02 Hypoxemia; K51.90 Ulcerative colitis, unspecified, without complications; G47.39 Other sleep apnea; H91.93 Unspecified hearing loss, bilateral | CPT/HCPCS: 99213; G0463 ==

== ENCOUNTER → 2017-01-31 | Outpatient (CLI) | payer OTHER ==
--- NOTE | 2017-02-01 09:51 | DI ---
XR HIP COMPLETE MIN 2VW U/L,01/31/2017 3:03 PM: Clinical History: Right hip pain Previous Exam: CT abdomen pelvis performed January 17, 2006 Findings: AP view of the pelvis as well as AP view of the right hip with a frog-leg view of the right hip demon strates a stable right total hip arthroplasty. There are multiple screws within the acetabular compon ent which remain stable even back to 2005. Mild osteopenia is seen. Degenerative changes of the lower lumbar spine are noted. Peripheral vascula r calcifications are also noted. Impression: No significant change since the examination from 2005.
== END ==
LOC: RAD 14:58
DX: M25.551 Pain in right hip (principal); Z96.641 Presence of right artificial hip joint; Y30.XXXA Falling, jumping or pushed from a high place, undetermined intent, initial encounter; Y93.89 Activity, other specified; Y92.013 Bedroom of single-family (private) house as the place of occurrence of the external cause
CPT/HCPCS: 73502